=== PATIENT | female | born 1950 | race African-American/Black ===

== ENCOUNTER → 2017-01-03 | Day surgery (SDC) | payer MEDICARE, BC ==
[~2017-01-03] MED LIST: ALBUTEROL17 GM INH; ANTACID650 MG PO; AVALIDE 300/12.1 TAB PO; BUMEX2 MG; CLARITIN10 M3 PO; COLCHICINE PO; COREG3.125 MG PO; COREG6.25 MG PO; CORICIDIN COUGH1 TAB PO; FENOFIBRATE48 MG PO; HYDRALAZINE HCL25 MG PO; ISORDIL10 MG PO; NORVASC PO; PREDNISONE; RENVELA800 MG PO; SENSIPAR30 M1 PO; SENSIPAR90 MG PO; ZYLOPRIM100 MG PO; ZYRTEC10 M1 PO
--- NOTE | ~2017-01-03 | OR ---
Unit #: [id number] #: [id number] Patient: JO ANN YUAN [id number] [address] [address] [id number] O MR#: [id number] NAME: JO ANN YUAN ROOM: Date of Procedure: 01/03/2017 Admission Date: 01/03/2017 Surgeon: Jovon Reed M.D. : 1950 Attending Physician: Jovon Reed M.D. Primary Care Physician: [facility] OPERATIVE REPORT PROCEDURE PERFORMED Esophagogastroduodenoscopy with biopsies. INDICATIONS FOR PROCEDURE The patient with significant dysphagia, undergoing evaluation with upper endoscopy. MEDICATIONS Monitored anesthesia. POSTOPERATIVE FINDINGS 1. There was nonerosive esophagitis involving diffusely distal esophagus. Biopsies taken. 2. Ulcer in the antrum with raised edges. Multiple biopsies taken from this area. 3. Duodenal bulb shows significant deformity, very large atrophic areas, possible previous ulcer disease. PLAN 1. PPI therapy. 2. Follow up on the pathology report. DESCRIPTION OF PROCEDURE The patient was explained of the procedure, risks, and benefits along with the risks and benefits of anesthesia. She was brought to the endoscopy room. Propofol anesthesia was given. Bite block was placed. The scope was passed down the mouth into the esophagus, stomach, duodenum, and distal duodenum. Findings as described. Biopsies taken. Gently, I pulled the scope out of the patient's mouth. She tolerated it well. Dictated by... Sukumar Linares/gogo TD: 01/03/2017 23:28 JOB #: [id number] Unit #: [id number] #: [id number] Patient: JO ANN YUAN OPERATIVE REPORT Page 1 of 1 X Jovon Reed MD X PROCEDURE OPERATIVE NOTE
== END | disposition home or self-care (01) ==
LOC: COPS 07:36
DX: K29.50 Unspecified chronic gastritis without bleeding (principal); B96.81 Helicobacter pylori [H. pylori] as the cause of diseases classified elsewhere; K20.9 Esophagitis, unspecified; I12.0 Hypertensive chronic kidney disease with stage 5 chronic kidney disease or end stage renal disease; N18.6 End stage renal disease; Z87.442 Personal history of urinary calculi; Z79.899 Other long term (current) drug therapy; Z90.49 Acquired absence of other specified parts of digestive tract; Z90.710 Acquired absence of both cervix and uterus; Z99.2 Dependence on renal dialysis
CPT/HCPCS: 88305; 88312